=== PATIENT | male | born 1990 ===

== ENCOUNTER 2016-12-05 00:31 | Emergency (ER) | payer OTHER, SELFPAY ==
[2016-12-05 00:32] VITALS: BMI 28.0
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
[2016-12-05 03:07] VITALS: BP 160/80; PULSE 89; RESP 17; TEMP 98
[2016-12-05 04:46] VITALS: O2SAT 99
--- NOTE | 2016-12-05 11:14 | RAD ---
Left wrist four views History: Injury. Comparison: None available. Findings: Horizontally oriented lucency through the waist of the scaphoid. This may represent a prominent vascular groove. Osseous injury cannot entirely be excluded. If pain persists at this level, consider repeat x-ray in 7-10 day interval and or correlation with MRI. Remainder of the visualized osseous structures appear preserved. Impression: Horizontally oriented lucency through the waist of the scaphoid. This may represent a prominent vascular groove. Osseous injury cannot entirely be excluded. If pain persists at this level, consider repeat x-ray in 7-10 day interval and or correlation with MRI.
== END 2016-12-05 03:16 | disposition home or self-care (01) ==
LOC: SUPCPDRO 00:31 → C.ER 00:31
DX: S60.212A Contusion of left wrist, initial encounter (principal); W06.XXXA Fall from bed, initial encounter

== ENCOUNTER 2016-12-22 12:39 | Emergency (ER) | payer OTHER ==
[2016-12-22 13:06] VITALS: BMI 31.0
[2016-12-22 13:10] VITALS: BP 158/80; PULSE 77; RESP 18; TEMP 98; O2SAT 99
--- NOTE | 2016-12-22 13:18 | C.PDOC ---
History Of Present Illness 26 y/o male presents to the ED for evaluation of an abscess to his right buttock that was noted around 3 days ago. Patient reports spontanous pus drainage. Otherwise, he denies fever, chills, or any other associated symptoms at this time. R BUTTOCK ABSCESS X 3 DAYS. +PUS DRAINAGE SPONT. NO FEVER OTHER ASSOC SX EXAM SKIN +DRAINING R BUTTOCK ABSCESS W LOCAL INDURATION. NO FOCAL FLUCTUANCE Time Seen by Provider: 12/22/16 13:14 Chief Complaint (Nursing): Abnormal Skin Integrity History Per: Patient History/Exam Limitations: no limitations Onset/Duration Of Symptoms: Days (3) Current Symptoms Are (Timing): Still Present Location Of Injury: Right: Buttock Quality Of Symptoms: Draining Additional History Per: Patient Past Medical History Reviewed: Historical Data, Nursing Documentation, Vital Signs Vital Signs: Last Vital Signs Temp 98.0 F 12/22/16 13:09 Pulse 77 12/22/16 13:09 Resp 18 12/22/16 13:09 BP 158/80 H 12/22/16 13:09 Pulse Ox 99 12/22/16 13:59 - Medical History PMH: Fractures (LEFT ARM/CASTED NO SURGERY), Gastritis, HTN Surgical History: Appendectomy (2011) - [employer] Procedures 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) Family History: States: Unknown Family Hx - Social History Hx Tobacco Use: Yes Hx Alcohol Use: Yes Hx Substance Use: No - Immunization History Hx Tetanus Toxoid Vaccination: Yes Hx Influenza Vaccination: Yes Hx Pneumococcal Vaccination: Yes Review Of Systems Except As Marked, All Systems Reviewed And Found Negative. Constitutional: Negative for: Fever, Chills Skin: Positive for: Other (+abscess to right buttock with spontaneous pus drainage ) Physical Exam - Physical Exam Appears: Non-toxic, No Acute Distress Skin: Normal Color, Warm, Dry, Other (+draining right buttock abscess with localized induration. no focal fluctuance ) Eye(s): bilateral: Normal Inspection Oral Mucosa: Moist Neck: Supple Extremity: Normal ROM, No Tenderness, Capillary Refill (less than 2 seconds ), No Swelling Neurological/Psych: Oriented x3, Normal Speech, Normal Cognition Gait: Steady ED Course And Treatment O2 Sat by Pulse Oximetry: 99 (on RA) Pulse Ox Interpretation: Normal Progress Note: On reassessment, patient is resting comfortably, showing no signs of distress, and is stable for discharge. Patient will be discharged with Rx and is advised to follow up with his PMD within 1-2 days for further evaluation. Disposition Counseled Patient/Family Regarding: Diagnosis, Need For Followup, Rx Given - Disposition Referrals: Clinic,Med Surg [Primary Care Provider] - Disposition: HOME/ ROUTINE Disposition Time: 13:29 Condition: IMPROVED Additional Instructions: Agregue a 1 cucharada (5 a 15mL) de bicarbonato de sodio o 1 a 2 cucharaditas (5 a 10mL) de azael al agua en el shanthi de asiento de plstico. Remueva el agua hasta que el bicarbonato de sodio o la azael se disuelva. 5. Cuidadosamente sentarse en el shanthi de asiento de plstico y remojar etienne jodee inferior de 10 a 15 minutos. Prescriptions: Ibuprofen [Motrin] 600 mg PO Q6 #30 tab Sulfamethoxazole/Trimethoprim [Bactrim DS 800 mg-160 mg] 1 tab PO BID #14 tab Instructions: Abscess (ED) Forms: Work Excuse Print Language: TURKMEN - Clinical Impression Clinical Impression: Abscess - Scribe Statement The provider has reviewed the documentation as recorded by the Scribe (Nelly Han) Provider Attestation: All medical record entries made by the Scribe were at my direction and personally dictated by me. I have reviewed the chart and agree that the record accurately reflects my personal performance of the history, physical exam, medical decision making, and the department course for this patient. I have also personally directed, reviewed, and agree with the discharge instructions and disposition.
== END 2016-12-22 13:55 | disposition home or self-care (01) ==
LOC: SUPCPDRO 12:39 → C.ER 12:39
DX: L02.31 Cutaneous abscess of buttock (principal)

== ENCOUNTER 2017-01-04 11:25 | Emergency (ER) | payer OTHER, SELFPAY ==
[2017-01-04 11:25] VITALS: BMI 31.0
--- NOTE | 2017-01-04 12:46 | C.PDOC ---
History Of Present Illness 26 y/o male presents to the ED presents to the ED for evaluation of a rash to the right buttock which began around 4 days ago. Patient denies fever, chills. Time Seen by Provider: 01/04/17 12:30 Chief Complaint (Nursing): Abnormal Skin Integrity History Per: Patient History/Exam Limitations: no limitations Onset/Duration Of Symptoms: Days (4) Current Symptoms Are (Timing): Still Present Location Of Injury: Right: Buttock Additional History Per: Patient Past Medical History Reviewed: Historical Data, Nursing Documentation, Vital Signs Vital Signs: Last Vital Signs Temp 98 F 01/04/17 14:03 Pulse 70 01/04/17 14:03 Resp 18 01/04/17 14:03 BP 133/76 01/04/17 14:03 Pulse Ox 96 01/04/17 14:03 - Medical History PMH: Fractures (LEFT ARM/CASTED NO SURGERY), Gastritis, HTN Denies: Chronic Kidney Disease Surgical History: Appendectomy (2011) - [facility] Procedures 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) Family History: States: Unknown Family Hx - Social History Hx Tobacco Use: Yes Hx Alcohol Use: Yes Hx Substance Use: No - Immunization History Hx Tetanus Toxoid Vaccination: Yes Hx Influenza Vaccination: Yes Hx Pneumococcal Vaccination: Yes Review Of Systems Except As Marked, All Systems Reviewed And Found Negative. Constitutional: Negative for: Fever, Chills Skin: Positive for: Rash (right buttock ) Physical Exam - Physical Exam Skin: Warm, Dry, Rash ([id number] area of rash with around 20-30 pustules. small hairs protruding through pustules. no vesicles or dermatome distribution ) Eye(s): bilateral: Normal Inspection Oral Mucosa: Moist Neck: Supple Extremity: Normal ROM, No Tenderness, Capillary Refill (less than 2 seconds ), No Deformity, No Swelling Neurological/Psych: Normal Speech, Normal Cognition ED Course And Treatment O2 Sat by Pulse Oximetry: 98 (on RA) Pulse Ox Interpretation: Normal Progress Note: Patient received Keflex PO and Motrin PO. Medical Decision Making Medical Decision Making: does not respect a dermatome, does not spread anterior no R buttock injections, no vesicles. area folliculitis Disposition Doctor Will See Patient In The: Office Counseled Patient/Family Regarding: Studies Performed, Diagnosis - Disposition Referrals: [facility] [Outside] Disposition: HOME/ ROUTINE Disposition Time: 13:52 Condition: GOOD Additional Instructions: winter el antbiotico Keflex 500 mg dos veces al en po 5 saleh Ibuprofeno 400-600 mg cada 6 horas no rascas el area Sigue en la [facility]. Prescriptions: Cephalexin [cephalexin] 500 mg PO Q12H #9 cap Instructions: Folliculitis (ED) Print Language: SOMALI - Clinical Impression Clinical Impression: Skin lesion - Scribe Statement The provider has reviewed the documentation as recorded by the Scribe (Nelly Han) Provider Attestation: All medical record entries made by the Scribe were at my direction and personally dictated by me. I have reviewed the chart and agree that the record accurately reflects my personal performance of the history, physical exam, medical decision making, and the department course for this patient. I have also personally directed, reviewed, and agree with the discharge instructions and disposition.
[2017-01-04 14:04] VITALS: BP 133/76; PULSE 70; RESP 18; TEMP 98
[2017-01-04 14:36] VITALS: O2SAT 98
== END 2017-01-04 14:04 | disposition home or self-care (01) ==
LOC: C.ER 11:25
DX: L73.9 Follicular disorder, unspecified (principal)

== ENCOUNTER 2017-01-11 21:43 | Emergency (ER) | payer SELFPAY ==
[2017-01-11 21:43] VITALS: BMI 31.0
[2017-01-11 22:10] VITALS: BP 159/94; PULSE 84; RESP 18; TEMP 97.8; O2SAT 96
[2017-01-11] MEDS ORDERED: Bacitracin 500 Units/gm Oint Foilpak UD ONE (23:01)
--- NOTE | 2017-01-11 23:54 | C.PDOC ---
History Of Present Illness Patient is a 26 year old male who presents to the ER with a complaint of a laceration to the right index finger after cutting his finger with a slicer at work. Tetanus is up to date, denies weakness or numbness. Time Seen by Provider: 01/11/17 22:05 Chief Complaint (Nursing): Abnormal Skin Integrity History Per: Patient History/Exam Limitations: no limitations Onset/Duration Of Symptoms: Hrs Current Symptoms Are (Timing): Still Present Location Of Injury: Right: Hand (Index finger) Quality Of Symptoms: Other (Laceration) Recent travel outside of the [place]: No Past Medical History Reviewed: Historical Data, Nursing Documentation, Vital Signs Vital Signs: Last Vital Signs Temp 97.8 F 01/11/17 21:50 Pulse 84 01/11/17 21:50 Resp 18 01/11/17 21:50 BP 159/94 H 01/11/17 21:50 Pulse Ox 96 01/12/17 01:38 - Medical History PMH: Fractures (LEFT ARM/CASTED NO SURGERY), Gastritis, HTN Surgical History: Appendectomy (2011) - [facility] Procedures 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) Family History: States: Unknown Family Hx - Social History Hx Tobacco Use: Yes Hx Alcohol Use: Yes Hx Substance Use: No - Immunization History Hx Tetanus Toxoid Vaccination: Yes Hx Influenza Vaccination: Yes Hx Pneumococcal Vaccination: Yes Review Of Systems Musculoskeletal: Positive for: Hand Pain (Right index finger) Neurological: Negative for: Weakness, Numbness Physical Exam - Physical Exam Appears: Non-toxic Skin: Normal Color, Warm, Dry Head: Atraumatic, Normacephalic Oral Mucosa: Moist Extremity: Capillary Refill, No Deformity, Other (Small skin avulsion to lateral aspect of right index finger distally w/ minimal bleeding.) ED Course And Treatment O2 Sat by Pulse Oximetry: 96 (Room air) Pulse Ox Interpretation: Normal Progress Note: Wound irrigated w/ saline and betadine. xeroform applied w/ pressure dressing. Patient observed for 15 minutes, bleeding has stopped. Patient instructed on proper wound care and advised to follow up with PMD. Disposition Counseled Patient/Family Regarding: Diagnosis, Need For Followup - Disposition Referrals: [facility] [Outside] Disposition: HOME/ ROUTINE Disposition Time: 23:51 Condition: STABLE Additional Instructions: Keep dressing on until wednesday morning then apply bacitracin and thin dressing or bandaid Return to ER if worse Instructions: Skin Avulsion (ED) - Clinical Impression Clinical Impression: Fingertip avulsion - Scribe Statement The provider has reviewed the documentation as recorded by the Scribrocío Ferro All medical record entries made by the Scribe were at my direction and personally dictated by me. I have reviewed the chart and agree that the record accurately reflects my personal performance of the history, physical exam, medical decision making, and the department course for this patient. I have also personally directed, reviewed, and agree with the discharge instructions and disposition.
== END 2017-01-12 00:05 | disposition home or self-care (01) ==
LOC: C.ER 21:43
DX: S61.200A Unspecified open wound of right index finger without damage to nail, initial encounter (principal); W31.89XA Contact with other specified machinery, initial encounter; Y93.G1 Activity, food preparation and clean up; Y92.89 Other specified places as the place of occurrence of the external cause; Y99.0 Civilian activity done for income or pay

== ENCOUNTER 2017-10-04 22:57 | Emergency (ER) | payer OTHER ==
[2017-10-04 22:58] VITALS: BMI 31.0
[2017-10-04] MEDS ORDERED: Aspirin 325 mg EC Tablets PO STA (23:48)
[2017-10-05] MEDS ORDERED: Aspirin 325 mg EC Tablets PO ONE (00:08)
--- NOTE | 2017-10-05 00:14 | C.PDOC ---
History Of Present Illness 27 year old male presents to the ED c/o sudden onset epistaxis that last for a few minutes then stops. Patient states that yesterday he developed pain in the left side of his chest and when he lays down he becomes dizzy. He states that it is not unusual for him to have intermittent episodes of dizziness with a spinning sensation. Patient reports his pain radiates to his left arm as well, and has been waxing/waning today. Patient denies SOB, nausea, vomit, diarrhea, prior episodes. Time Seen by Provider: 10/04/17 23:38 Chief Complaint (Nursing): Chest Pain History Per: Patient History/Exam Limitations: no limitations Onset/Duration Of Symptoms: Days Current Symptoms Are (Timing): Still Present Quality: "Pain" Modifying Factors: None Exacerbating Factors: None Recent travel outside of the [place]: No Additional History Per: Patient Past Medical History Reviewed: Historical Data, Nursing Documentation, Vital Signs Vital Signs: Last Vital Signs Temp 99 F 10/04/17 23:17 Pulse 74 10/04/17 23:17 Resp 20 10/04/17 23:17 BP 178/88 H 10/04/17 23:17 Pulse Ox 100 10/05/17 00:16 - Medical History PMH: Fractures (LEFT ARM/CASTED NO SURGERY), Gastritis, HTN Denies: Chronic Kidney Disease Surgical History: Appendectomy (2011) - [facility] Procedures 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) Family History: States: Unknown Family Hx - Social History Hx Tobacco Use: Yes Hx Alcohol Use: Yes Hx Substance Use: No - Immunization History Hx Tetanus Toxoid Vaccination: Yes Hx Influenza Vaccination: Yes Hx Pneumococcal Vaccination: Yes Review Of Systems Constitutional: Negative for: Fever, Chills ENT: Positive for: Nose Discharge Cardiovascular: Positive for: Chest Pain. Negative for: Palpitations Respiratory: Negative for: Shortness of Breath Gastrointestinal: Negative for: Nausea, Vomiting, Abdominal Pain Skin: Negative for: Rash Neurological: Positive for: Dizziness. Negative for: Weakness, Numbness, Headache Physical Exam - Physical Exam Appears: Non-toxic, No Acute Distress Skin: Normal Color, Warm, Dry Head: Atraumatic, Normacephalic Eye(s): bilateral: Normal Inspection Nose: No Discharge, No Epistaxis Oral Mucosa: Moist Neck: Normal ROM, Supple Chest: Symmetrical Cardiovascular: Rhythm Regular, No Murmur Respiratory: Normal Breath Sounds, No Rales, No Rhonchi, No Wheezing Gastrointestinal/Abdominal: Soft, No Tenderness, No Guarding, No Rebound Extremity: Normal ROM, No Tenderness, No Swelling Neurological/Psych: Oriented x3, Normal Speech, Normal Cognition Gait: Steady ED Course And Treatment - Laboratory Results Result Diagrams: 10/05/17 00:09 10/05/17 00:09 Lab Interpretation: No Acute Changes ECG: Interpreted By Me ECG Rhythm: Sinus Rhythm ECG Interpretation: Normal O2 Sat by Pulse Oximetry: 100 (On RA) Pulse Ox Interpretation: Normal - Radiology CXR: Interpreted by Me CXR Interpretation: Yes: No Acute Disease Reevaluation Time: 00:46 Reassessment Condition: Improved Medical Decision Making Medical Decision Making: Impression: epistaxis, chest pain Plan: * EKG * Labs * CXR * Aspirin 325 mg PO Disposition - Disposition Referrals: [facility] [Outside] Disposition: HOME/ ROUTINE Disposition Time: 00:51 Condition: STABLE Instructions: Chest Pain Forms: [facility] (Greenlandic) - Clinical Impression Clinical Impression: Chest pain - Scribe Statement The provider has reviewed the documentation as recorded by the Scribe Dario Caputo All medical record entries made by the Scribe were at my direction and personally dictated by me. I have reviewed the chart and agree that the record accurately reflects my personal performance of the history, physical exam, medical decision making, and the department course for this patient. I have also personally directed, reviewed, and agree with the discharge instructions and disposition.
[2017-10-05 00:16] LABS: BASO # 0.1 K/uL (0.0-0.2); BASO % 0.7 % (0.0-2.0); EOS # 1.6 K/uL (0.0-0.7); EOS % 11.6 % (0.0-4.0); HEMOGLOBIN 15.8 g/dL (12.0-18.0); LYMPH # 3.8 K/uL (1.0-4.3); LYMPH % 27.9 % (20.0-40.0); MEAN CELL VOLUME 83.9 fL (80.0-94.0); MEAN CORPUSCULAR HEMOGLOBIN 28.6 pg (27.0-31.0); MEAN CORPUSCULAR HGB CONC 34.1 g/dL (33.0-37.0); MONO # 1.4 K/uL (0.0-0.8); MONO % 10.5 % (0.0-10.0); NEUT # 6.7 K/uL (1.8-7.0); NEUT % 49.3 % (50.0-75.0); RBC 5.53 Mil/uL (4.40-5.90); RED CELL DISTRIBUTION WIDTH 13.6 % (11.5-14.5); WHITE BLOOD COUNT 13.6 K/uL (4.8-10.8)
[2017-10-05 00:30] LABS: ALB/GLOB RATIO 1.1 (1.0-2.1); ALBUMIN 4.2 g/dL (3.5-5.0); ALT/SGPT 50 U/L (21-72); AST/SGOT 32 U/L (17-59); BLOOD UREA NITROGEN 14 mg/dL (9-20); CALCIUM 8.8 mg/dl (8.6-10.4); GFR AFRICAN-AMERICAN > 60; GFR NON-AFRICAN AMERICAN > 60
[2017-10-05 00:58] VITALS: BP 146/70; PULSE 67; RESP 16; TEMP 98; O2SAT 97
--- NOTE | 2017-10-05 09:50 | RAD ---
HISTORY: chest pain COMPARISON: 02/19/2016 TECHNIQUE: Chest PA and lateral FINDINGS: LUNGS: No active pulmonary disease. PLEURA: No significant pleural effusion identified. No pneumothorax apparent. CARDIOVASCULAR: Normal. OSSEOUS STRUCTURES: No significant abnormalities. VISUALIZED UPPER ABDOMEN: Normal. OTHER FINDINGS: None. IMPRESSION: No active disease.
--- NOTE | 2017-10-05 19:07 | CARD ---
APPROVED REPORT EKG Measurement Heart [id number] <Conclusion> Normal sinus rhythm with sinus arrhythmia Normal ECG
== END 2017-10-05 01:05 | disposition home or self-care (01) ==
LOC: C.ER 22:57
DX: R07.9 Chest pain, unspecified (principal)

== ENCOUNTER 2018-10-31 21:52 | Emergency (ER) | payer SELFPAY ==
[2018-10-31 21:52] VITALS: BMI 31.0
[2018-10-31 22:08] VITALS: RESP 20; O2SAT 97
[2018-10-31] MEDS ORDERED: Sodium Chloride 0.9% 1,000 ML IV ONE (22:09)
[2018-10-31] MEDS ORDERED: Sodium Chloride 0.9% 1,000 ML ONE (23:01)
[2018-10-31 23:32] LABS: BASO % 0.2 % (0.0-2.0); LYMPH # 0.7 K/uL (1.0-4.3); LYMPH % 5.1 % (20.0-40.0); MEAN CORPUSCULAR HEMOGLOBIN 29.2 pg (27.0-31.0); MEAN CORPUSCULAR HGB CONC 33.9 g/dL (33.0-37.0); MONO # 0.8 K/uL (0.0-0.8); MONO % 5.9 % (0.0-10.0); NEUT # 12.7 K/uL (1.8-7.0); NEUT % 88.8 % (50.0-75.0); PLATELET COUNT 241 K/uL (130-400); RBC 5.83 Mil/uL (4.40-5.90); RED CELL DISTRIBUTION WIDTH 13.5 % (11.5-14.5); WHITE BLOOD COUNT 14.3 K/uL (4.8-10.8)
--- NOTE | 2018-10-31 23:35 | C.PDOC ---
History Of Present Illness 28 year old male presents with epigastric pain, vomiting, and diarrhea since last night after eating chicken from a restaurant. Denies blood in stool or blood in vomitus. He also states he "feels feverish". Denies recent travel. Time Seen by Provider: 10/31/18 22:08 Chief Complaint (Nursing): Abdominal Pain History Per: Patient History/Exam Limitations: no limitations Onset/Duration Of Symptoms: Hrs Current Symptoms Are (Timing): Still Present Location Of Pain/Discomfort: Epigastric Quality Of Discomfort: Unable To Describe Associated Symptoms: Fever (Subjective), Vomiting, Diarrhea Exacerbating Factors: None Alleviating Factors: None Recent travel outside of the [place]: No Past Medical History Reviewed: Historical Data, Nursing Documentation, Vital Signs Vital Signs: Last Vital Signs Temp 98.9 F 10/31/18 22:05 Pulse 95 H 10/31/18 22:05 Resp 20 10/31/18 22:05 BP 144/74 10/31/18 22:05 Pulse Ox 97 10/31/18 22:05 - Medical History PMH: Fractures (LEFT ARM/CASTED NO SURGERY), Gastritis, HTN Denies: Chronic Kidney Disease Surgical History: Appendectomy (2011) - [facility] Procedures 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) Family History: States: Unknown Family Hx - Social History Hx Tobacco Use: Yes Hx Alcohol Use: Yes Hx Substance Use: No - Immunization History Hx Tetanus Toxoid Vaccination: Yes Hx Influenza Vaccination: Yes Hx Pneumococcal Vaccination: Yes Review Of Systems Constitutional: Positive for: Fever (Subjective). Negative for: Chills Cardiovascular: Negative for: Chest Pain, Palpitations Respiratory: Negative for: Cough Gastrointestinal: Positive for: Vomiting, Abdominal Pain (Epigastric), Diarrhea Neurological: Negative for: Weakness, Numbness Physical Exam - Physical Exam Appears: Non-toxic Skin: Normal Color, Warm Head: Atraumatic, Normacephalic Eye(s): bilateral: Normal Inspection Oral Mucosa: Moist Neck: Normal, Supple Chest: Symmetrical, No Tenderness Cardiovascular: Rhythm Regular Respiratory: Normal Breath Sounds, No Rales, No Rhonchi, No Wheezing Gastrointestinal/Abdominal: Soft, Tenderness (Minimal epigastric), No Guarding, No Rebound Back: No CVA Tenderness Neurological/Psych: Oriented x3, Normal Speech ED Course And Treatment - Laboratory Results Result Diagrams: 10/31/18 23:28 10/31/18 23:28 O2 Sat by Pulse Oximetry: 97 (Room air) Pulse Ox Interpretation: Normal Progress Note: Blood work ordered. Pepcid, zofran, and IV fluids administered. Disposition - Disposition Referrals: [facility] [Outside] [facility] [Outside] Disposition: HOME/ ROUTINE Disposition Time: 01:00 Condition: IMPROVED Additional Instructions: RENAN PARKER, thank you for letting us take care of you today. The emergency medical care you received today was directed at your acute symptoms. If you were prescribed any medication, please fill it and take as directed. It may take several days for your symptoms to resolve. Return to the Emergency Department if your symptoms worsen, do not improve, or if you have any other problems. Please contact your doctor or call one of the physicians/clinics you have been referred to that are listed on the Patient Visit Information form that is included in your discharge packet. Bring any paperwork you were given at discharge with you along with any medications you are taking to your follow up visit. Our treatment cannot replace ongoing medical care by a primary care provider outside of the emergency department. Thank you for allowing the [facility] team to be part of your care today. Drink plenty of fluids to maintain hydration. Follow up with our clinic for outpatient care this week. Prescriptions: Famotidine [Pepcid] 20 mg PO BID #20 tab Instructions: Gastritis (DC) Forms: [employer] (Turkmen) - Clinical Impression Clinical Impression: Gastritis - Scribe Statement The provider has reviewed the documentation as recorded by the Scribe Luis Daniel Ferro All medical record entries made by the Scribe were at my direction and p ersonally dictated by me. I have reviewed the chart and agree that the record accurately reflects my personal performance of the history, physical exam, medical decision making, and the department course for this patient. I have also personally directed, reviewed, and agree with the discharge instructions and disposition.
[2018-10-31 23:41] LABS: MEAN CELL VOLUME 86.1 fL (80.0-94.0)
[2018-10-31 23:44] LABS: ALB/GLOB RATIO 1.4 (1.0-2.1); ALBUMIN 4.7 g/dL (3.5-5.0); ALT/SGPT 52 U/L (21-72); AST/SGOT 58 U/L (17-59); BLOOD UREA NITROGEN 19 mg/dL (9-20); CALCIUM 9.6 mg/dl (8.6-10.4); GFR NON-AFRICAN AMERICAN > 60; LIPASE 46 U/L (23-300)
[2018-11-01] MEDS ORDERED: Iodixanol 320 MG/ML 100 ML BOTTLE IV ONE (00:08)
[2018-11-01 01:25] VITALS: BP 126/63; PULSE 61; TEMP 99.9
[2018-11-01 02:16] LABS: LYMPHOCYTE 6 % (20-40); MONOCYTE 6 % (0-10); NEUTROPHIL 88 % (50-75); PLATELET ESTIMATE NORMAL (NORMAL); TOTAL CELLS COUNTED 100
== END 2018-11-01 01:24 | disposition home or self-care (01) ==
LOC: C.ER 21:52
DX: K29.70 Gastritis, unspecified, without bleeding (principal); I10 Essential (primary) hypertension; Z72.0 Tobacco use
CPT/HCPCS: 80053; 83690; 85025; 96374; 96375; 99284; J2405; J7030; Q9967